=== PATIENT | female | born 1965 | race Two or more races ===

== ENCOUNTER 2018-01-15 11:02 | Outpatient (CLI) | payer OTHER | END 2018-01-15 11:14 | disposition home or self-care (01) | LOC: RAD 501 11:02 | DX: M54.5 Low back pain (principal); M79.672 Pain in left foot ==

== ENCOUNTER → 2018-09-01 | Outpatient (CLI) | payer OTHER ==
[~2018-09-01] MED LIST: SULFAMETHOXAZOL1 TA6 PO; SYNTHROID200 MCG; ZANTAC150 MG PO
== END | disposition home or self-care (01) ==
LOC: RAD 501 09:07
DX: M75.41 Impingement syndrome of right shoulder (principal)

== ENCOUNTER 2018-09-03 07:11 | Outpatient (CLI) | payer OTHER | END 2018-09-03 07:20 | disposition home or self-care (01) | LOC: MRI 07:11 | DX: M54.2 Cervicalgia (principal); M54.12 Radiculopathy, cervical region | CPT/HCPCS: 72141 ==

== ENCOUNTER → 2021-09-22 10:13 | Outpatient (CLI) | payer OTHER | END | disposition home or self-care (01) | LOC: NUCLEAR 10:00 | PROVIDERS: ATTEND Internal Medicine | DX: M54.59 Other low back pain (principal); E03.9 Hypothyroidism, unspecified; E55.9 Vitamin D deficiency, unspecified; E78.9 Disorder of lipoprotein metabolism, unspecified; I10 Essential (primary) hypertension; Z12.31 Encounter for screening mammogram for malignant neoplasm of breast ==